=== PATIENT | male | born 1985 | race Caucasian/White ===

== ENCOUNTER → 2019-02-23 11:37 | Outpatient (CLI) | payer BC, SELFPAY ==
[2019-02-23 15:13] LABS: Anion Gap 8 (5-15); BUN 11 mg/dL (7-18); BUN/Creat Ratio 10.9 RATIO (10-20); Calcium,Total 9.4 mg/dL (8.5-10.1); Chloride 103 mmol/L (98-107); Cholesterol 131 mg/dL (200); Creatinine, Serum 1.01 mg/dL (0.70-1.30); EST Glomerular Filtration Rate 90 mL/min (>60); Est Glom Filt Rate - Afr Amer 109 mL/min (>60); Glucose 95 mg/dL (74-106); High Density Lipoprotein 85 mg/dL; Sodium Level 141 mmol/L (136-145); Thyroid Stim Hormone (TSH) 0.66 uIU/mL (0.358-3.74); Triglycerides 28 mg/dL; Very Low Density Lipoprotein 6 mg/dL (5-40)
== END ==
PROVIDERS: Family Provider Family Medicine; PCP Family Medicine; Referring Provider Family Medicine; Visit Provider Family Medicine
DX: Z00.00 Encounter for general adult medical examination without abnormal findings (principal); F41.9 Anxiety disorder, unspecified
CPT/HCPCS: 36415; 80048; 80061; 84443

== ENCOUNTER → 2019-08-17 15:31 | Outpatient (CLI) | payer BC, SELFPAY | PROVIDERS: Family Provider Family Medicine; PCP Family Medicine; Referring Provider Otolaryngology Otolaryngology/Facial Plastic Surgery; Visit Provider Otolaryngology Otolaryngology/Facial Plastic Surgery | DX: J02.9 Acute pharyngitis, unspecified (principal) | CPT/HCPCS: 87070 ==

== ENCOUNTER → 2021-03-03 09:29 | Outpatient (CLI) | payer OTHER, SELFPAY ==
[2021-03-03 13:01] LABS: Anion Gap 4 (5-15); BUN 13 mg/dL (7-18); BUN/Creat Ratio 12.3 RATIO (10-20); Calcium,Total 9.1 mg/dL (8.5-10.1); Chloride 105 mmol/L (98-107); Cholesterol 153 mg/dL (200); Creatinine, Serum 1.06 mg/dL (0.70-1.30); EST Glomerular Filtration Rate 85 mL/min (>60); Est Glom Filt Rate - Afr Amer 102 mL/min (>60); Glucose 113 mg/dL (74-106); High Density Lipoprotein 95 mg/dL; Potassium 4.2 mmol/L (3.5-5.1); Sodium Level 139 mmol/L (136-145); Triglycerides 28 mg/dL; Very Low Density Lipoprotein 6 mg/dL (5-40)
== END ==
PROVIDERS: PCP Family Medicine; Visit Provider Family Medicine
DX: I10 Essential (primary) hypertension (principal)
CPT/HCPCS: 36415; 80048; 80061

== ENCOUNTER → 2024-01-10 | Outpatient (CLI) | payer OTHER, SELFPAY ==
[2024-01-10 16:11] LABS: Anion Gap 7 (5-15); BUN 12 mg/dL (7-18); BUN/Creat Ratio 10.5 RATIO (10-20); Calcium,Total 9.4 mg/dL (8.5-10.1); Chloride 102 mmol/L (98-107); Cholesterol 117 mg/dL (200); Creatinine, Serum 1.14 mg/dL (0.70-1.30); EST Glomerular Filtration Rate 76 mL/min (>60); Est Glom Filt Rate - Afr Amer 93 mL/min (>60); Glucose 120 mg/dL (74-106); High Density Lipoprotein 63 mg/dL; Potassium 3.9 mmol/L (3.5-5.1); Sodium Level 137 mmol/L (136-145); Thyroid Stim Hormone (TSH) 0.78 uIU/mL (0.358-3.74); Triglycerides 56 mg/dL; Very Low Density Lipoprotein 11 mg/dL (5-40)
== END | disposition home or self-care (01) ==
LOC: MFPLAB 11:53
PROVIDERS: PCP Family Medicine; Visit Provider Family Medicine
DX: Z00.00 Encounter for general adult medical examination without abnormal findings (principal)
CPT/HCPCS: 36415; 80048; 80061; 84403; 84443

== ENCOUNTER 2024-02-03 16:08 | Emergency (ER) | payer OTHER, SELFPAY ==
[2024-02-03 16:12] VITALS: BP 142/88; PULSE 82; RESP 18; TEMP 36.2; O2SAT 98
--- NOTE | 2024-02-03 18:14 | EX.ED.UPPERE ---
HPI History of Present Illness HPI Narrative: Left index finger laceration with a box stamper. Believes his tetanus is up-to-date. Chief Complaint: Laceration Informant: patient Occured/Mechanism Mechanism/Context: Yes injury Onset/Context/Timing Onset: Today and Hours Context: Sudden Onset Timing: Continuous Quality of Pain: Sharp Current Severity: Mild Maximum Severity: Mild Associated Symptoms Associated Symptoms: Positive for Parasthesia; Negative for Weakness or Loss of Funtion Narrative Narrative: 38-year-old male [id number] was cutting ties with a box stamper when he accidentally lacerated his left distal index finger on the radial side. Believes his tetanus is up-to-date. Denies any other injuries. 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 Tetanus Immunization: 5-10 years Prior similar symptoms: No Recent Illness/Hospitalization: No PFSH PFSH Medical History no medical history no medical history Allergy/AdvReac Type Severity Reaction Status Date / Time Penicillins Allergy Unknown unknown Verified 02/03/24 16:11 Surgical History no surgical history no surgical history ROS ROS ED ROS Narrative Denies recent illness. Review of Systems ROS Unobtainable: Denies due to encephalopathy Constitutional Constitutional ED: Denies chills or fever(s) Eyes Eyes: Denies blurry vision ENT ENT ED: Denies ear pain, rhinorrhea or sore throat Cardiovascular Cardiovascular: Denies chest pain Respiratory/Chest Respiratory/Chest: Denies cough or dyspnea Gastrointestinal Gastrointestinal: Denies abdominal pain Genitourinary Genitourinary ED: Denies dysuria or hematuria Musculoskeletal Musculoskeletal: Denies back pain, myalgias or neck pain Integumentary Denies abscess, Abrasions or rash Neurologic Neurologic: Denies headache(s) Psychiatric Psychiatric: Denies anxiety, depression, suicidal ideation or suicidal thoughts Endocrine Endocrinology: Denies cold intolerance Hematologic/Lymphatic Hematologic/Lymphatic: Denies easy bleeding, easy bruising or lymphadenopathy Allergic/Immunologic Allergic/Immunologic ED: Denies mouth swelling, tongue swelling or urticaria EXAM Physical Exam Narrative Exam Narrative: 38 male vital signs stable afebrile. Exam unremarkable except left hand, left index finger distal en melanie side he has a diagonal laceration on the skin subcu tissue. There is venous bleeding. Distally on the radial side he has decreased sensation. There may be a digital nerve injury distally. No foreign body. No infection. He is able to flex and extend all joints of left index fingers. Lungs are clear. Heart regular rhythm. Chest wall nontender. He is awake alert. Answering questions following commands. Const Vital Signs: 02/03/24 16:12 Temperature 97.2 F L Temperature Source Temporal Pulse Rate 82 Respiratory Rate 18 Blood Pressure 142/88 H Blood Pressure Mean 106 Pulse Ox 98 Oxygen Delivery Method Room Air Positive well nourished and well developed; Negative for obese, cachectic, contractures or unkempt General Appearance ED: well developed and NAD; Negative for unkempt, cachectic, contractures, cyanotic or diaphoretic Nutritional Appearance: Negative for cachectic or obese HEENT Reports moist mucous membranes normocephalic and atraumatic; Negative for trauma or tenderness Eyes PERRL and EOMs intact bilaterally General Eye ED: Negative for other Neck full ROM and supple General: Negative for tenderness Lymph Lymphatic: Negative for other Chest Wall inspection of chest normal and palpation of chest normal Chest: Negative for other Resp normal respiratory effort and clear to auscultation bilaterally Effort and Inspection: Negative for pain with movement Auscultation: Negative for rales, rhonchi, wheezes or diminished lung sounds Cardio regular rate, regular rhythm, S1 normal heart sound, S2 normal heart sound and no murmurs Rate: Negative for bradycardia Rhythm: Negative for abnormal rhythm GI non-tender, non-distended and no masses Inspection: Negative for abdominal distention Auscultation: normoactive bowel sounds Palpation: soft; Negative for tender, guarding or rebound tenderness present Back/Spine no CVA tenderness General Back: Negative for CVA tenderness Cervical Spine: Negative for cervical spine tenderness Thoracic Spine / Upper Back: Negative for thoracic spinal tenderness Lumbar Spine / Lower Back: Negative for lumbar spinal tenderness Extremity normal to inspection and full ROM Extremity Narrative: Except left index finger palmar radial side diagonal laceration bone skin subcu tissue. Venous bleeding. Distal radial side tip decreased sensation. No foreign body infection. General Extremety ED: Negative for edema General Extremity: Negative for edema Neuro oriented x3, CN's II-XII intact bilaterally, moves all extremities, no focal motor deficits and No no sensory deficits noted Sensorium / Orientation: alert, oriented to person, oriented to place and oriented to time; Negative for orientation impaired, lethargic or stuporous Motor Exam: strength 5/5 throughout Psych mental status grossly normal Appearance: Negative for unkempt Attitude: No agitated Mood & Affect: Negative for depressed, anxious or tearful Skin General Skin Exam: Negative for petechiae Lesions: no lesions Rashes: no rashes Trauma: laceration linear MDM MDM MDM Narrative Medical decision making narrative: 38-year-old [id number] left distal index finger laceration will need repaired. Tetanus is up-to-date. Digital block and this will be explored washed out irrigated and repaired. There may be a digital nerve injury due to decreased sensation distally. Suture repair left index finger. Good hemostasis and wound closure. Patient instructed on wound care and suture removal in 10 to 14 days. Nurse will clean and dress it will be discharged home. He is comfortable with the plan. History & Record Review Discussion w/independent historian: Patient Additional record(s) reviewed:: Prior inpatient record, Prior outpatient record, Prior ED visit and Prior labs Procedures Lacerations Left index finger laceration repair:: Length: 3 in Depth: Sub Q Shape: Linear Prep: Shure-Clens Laceration repair: Digital block, Irrigated, Lidocaine, Nerve block and Skin sutures Number of Sutures/[place]: 7 Suture Information: Ethilon, Simple and 4-0 Comment: Left distal index finger laceration radial side. Involve the skin subcu tissue. Distally decreased sensation concern for possible digital nerve injury. Patient understands that. Digital block was performed. Once proper site was obtained. The wound was cleaned with Shur-Clens. Copiously irrigated with saline and explored. Closed using 7 simple erupted 4-0 Ethilon sutures. Proper hemostasis wound closure was obtained. Patient instructed on wound care and suture removal in 10 to 14 days. Discharge Plan Triage Chief Complaint: Laceration ED Provider: Enrique Lundberg Dx/Rx/DC Orders Clinical Impression: Finger laceration Instructions: ED Laceration, Hand: All Closures Primary Care Provider: Fletcher Corona Referrals: Fletcher Corona MD [Primary Care Provider] - 10-14 Days suture removal Activity Restrictions/Additional Instructions: If our dressing stays dry and clean you can leave it on for 2 to 3 days. Then start cleaning it daily with soap and water or peroxide and water. Dry thoroughly. Do not soak your finger in any liquids. Apply antibiotic ointment. Patient change dressing daily. Tylenol and Motrin for pain. Ice and elevate. To decrease pain and swelling. Watch for any signs of infection such as redness, streaks, pus or swelling or fever if seen return. Stitches out in 10 to no more than 14 days. Disposition Disposition: Home, Self Care
[2024-02-03 19:23] VITALS: BMI 22.1
== END 2024-02-03 19:37 | disposition home or self-care (01) ==
PROVIDERS: Emergency Provider Emergency Medicine; PCP Family Medicine; Visit Provider Emergency Medicine
DX: S61.211A Laceration without foreign body of left index finger without damage to nail, initial encounter (principal); W26.9XXA Contact with unspecified sharp object(s), initial encounter
CPT/HCPCS: 12002; 99284

== ENCOUNTER 2025-02-21 18:03 | Inpatient (IN) | payer OTHER, SELFPAY ==
[2025-02-21 18:04] VITALS: BP 147/105; PULSE 88; RESP 16; TEMP 36.8; O2SAT 98; BMI 24.8
--- NOTE | 2025-02-21 18:45 | EX.ED.DYSGE1 ---
HPI History of Present Illness Chief Complaint: Substance Abuse [facility] Medical History (Updated 02/21/25 @ 21:46 by Era Roberson) Anxiety Home Medications ?Medication ?Instructions ?Recorded ?Last Taken ?Type alprazolam 1 mg tablet (Xanax) 1 mg PO .COMPLEX 02/21/25 Unknown History ketotifen fumarate 0.025 % (0.035 1 drp EACH EYE BID PRN allergy 02/21/25 Unknown History %) eye drops (Alaway) symptoms Allergy/AdvReac Type Severity Reaction Status Date / Time Penicillins Allergy Unknown unknown Verified 02/21/25 19:11 Social History Smoking Status: Former smoker EXAM Physical Exam Const Vital Signs: 02/21/25 18:04 02/21/25 20:04 Temperature 98.2 F 98 F Temperature Source Oral Pulse Rate 88 75 Respiratory Rate 16 16 Blood Pressure 147/105 H 139/84 H Blood Pressure Mean 119 102 Pulse Ox 98 100 Oxygen Delivery Method Room Air MDM MDM MDM Narrative Medical decision making narrative: HISTORY OF PRESENT ILLNESS: Chief complaint: Alcohol detox 40-year-old male history of alcohol abuse presents with concern for alcohol detox. States he wants detox. States has been drinking approximate 12 pack a day. Last drink was just prior to arrival. REVIEW OF SYSTEMS: Pertinent positives: None Pertinent negatives: Headache, abdominal pain, vomiting PHYSICAL EXAM: Nursing triage notes reviewed, Vital signs reviewed Constitutional: please see mdm HENT: MMM Eyes: Pupils equal round and reactive to light, Extraocular muscles intact Neck: No stridor, no JVD, full neck ROM Lungs: Clear to auscultation, No wheezing or rales. No increased work of breathing, no conversational dyspnea, no accessory muscle use, no nasal flaring. No respiratory distress noted Heart: Regular rate and rhythm, No murmurs, No rubs and No gallops, 2+ distal pulses (radial, femoral, posterior tibial) in all extremities Abdomen: Soft, there is no tenderness, rigidity, rebound or guarding, no obvious peritoneal signs, no palpable pulsatile abdominal masses, no auscultated abdominal bruit : No CVAT Extremities: No edema Neuro: No new focal neurological deficits, cranial nerves II through XII intact, 5/5 strength in all present extremities. Intact sensation to light touch in all present extremities, 2+ reflexes bilateral patella tendons. Skin: No rash or lesions noted MEDICAL DECISION MAKING: Chief Complaint: please see HPI External records reviewed: Reviewed prior ED evaluation Factors affecting care: none Social determinants of health: history of alcohol abuse History obtained from others: Consults: Internal medicine (Dr. Adams) [facility] Narrative: The patient was initially hemodynamically stable, afebrile and nontoxic-appearing. Exam unremarkable Medical clearance labs obtained. Medical clearance labs are reassuring. Alcohol is most elevated consistent patient's history of alcohol abuse The patient was admitted to [facility] for ramp program The patient and/or family, caregivers express understanding. The patient and/or family, caregivers agrees with the plan. Shared decision making: I will have a discussion with the patient and or visitors regarding risk/benefits of further testing or admission. They will be made aware of of the risk/benefits inherent in this decision they will be given the opportunity to voice understanding. Total critical care time today provided was at least 0 [] minutes. This excludes separately billable procedures. Critical care time (if documented) is secondary to the patient having high probability of clinically significant/life threatening deterioration in the patient's condition which required my urgent intervention. Impression: 1. History of alcohol abuse 2. Encounter for alcohol detoxification Dispo: Discharge home This note was generated with Technical Machine dictation software. It may contain incorrect words, spelling, and punctuation that were not noted in review of the chart prior to signing. Lab Data Labs: Laboratory Results - last 24 hr 02/21/25 02/21/25 18:25 19:30 WBC 11.0 RBC 4.83 Hgb 15.8 Hct 44.9 MCV 93.0 MCH 32.7 H MCHC 35.2 RDW Std Deviation 37.5 RDW Coeff of Haider 11.0 L Plt Count 267 MPV 9.4 Immature Gran % (Auto) 0.200 Neut % (Auto) 56.1 Lymph % (Auto) 21.6 [place] % (Auto) 11.1 H Eos % (Auto) 9.0 H Baso % (Auto) 2.0 H Absolute Neuts (auto) 6.2 Absolute Lymphs (auto) 2.38 Nucleated RBC % 0 Sodium 136 Potassium 3.2 L Chloride 92 L Carbon Dioxide 28.7 Anion Gap 16 H BUN 5 Creatinine 0.75 Estim Creat Clear Calc 132.24 Est GFR (MDRD) Non-Af 118 BUN/Creatinine Ratio 6.1 L Glucose 123 H Calcium 9.0 Urine Opiates Screen NEGATIVE U Buprenorphine Qual NEGATIVE Ur Oxycodone Screen NEGATIVE Urine Methadone Screen NEGATIVE Urine Fentanyl Screen NEGATIVE Ur Barbiturates Screen NEGATIVE Ur Phencyclidine Scrn NEGATIVE Ur Amphetamines Screen NEGATIVE U Benzodiazepines Scrn NEGATIVE Urine Cocaine Screen NEGATIVE U Cannabinoids Screen NEGATIVE Ethyl Alcohol 366.0 H* Discharge Plan Disposition Disposition: Acute Care Hospital [facility] Discharge Date/Time: 02/21/25 21:16
[2025-02-21 19:27] LABS: Absolute Lymphocyte Count 2.38 X10^3/uL (0.83-4.51); Absolute Neutrophil Count 6.2 X10^3/uL (2.0-7.7); Basophil# 0.22 X10^3/uL; Eosinophil# 0.99 X10^3/uL; Hematocrit 44.9 % (40-54); Hemoglobin 15.8 g/dL (13.0-16.5); Lymphocyte # 2.38 X10^3/ul (0.83-4.51); Lymphocyte % 21.6 % (19-41); Mean Corp Hgb Conc 35.2 g/dL (32-36); Mean Corpuscular Hgb 32.7 pg (27.0-32.0); Mean Platelet Vol. 9.4 fl (6.2-12.0); Monocyte# 1.22 X10^3/uL; Monocyte% 11.1 % (0-10); NRBC Flagged by Analyzer 0 % (0-5); Neutrophil % 56.1 % (47-70); Platelet Count 267 K/mm3 (150-450); RBC Distribution Width SD 37.5 fl (35.1-43.9); Red Blood Count 4.83 M/mm3 (4.6-6.2)
[2025-02-21 19:46] LABS: Anion Gap 16 (5-15); BUN 5 mg/dL (4-19); BUN/Creat Ratio 6.1 RATIO (10-20); Carbon Dioxide 28.7 mmol/L (21.0-32.0); Chloride 92 mmol/L (98-108); Creatinine, Serum 0.75 mg/dL (0.70-1.20); EST Glomerular Filtration Rate 118 (>60); Estimated Creatinine Clearance 132.24 ml/min (50-250); Glucose 123 mg/dL (70-99); Potassium 3.2 mmol/L (3.3-5.1); Sodium Level 136 mmol/L (133-145)
--- NOTE | 2025-02-21 19:56 | CM.ED ---
Social Work SW met with patient, patients and patients mother. Patients was uncertain if patient needed detox or a mental health assessment. Due to patients alcohol level and length of time he has been drinking heavily, physician stated that the safest way for patient to be medically cleared for a mental health assessment would be to participated in RAMP. Patient and stated understanding of same and are agreeable for RAMP program. Patient to be assessed for mental health if needed once sober. Salina Reid, TITLE MANAGER, AMBULATORY TECHNOLOGIST
[2025-02-21 19:59] LABS: Amphetamine Urine NEGATIVE (<1000 ng/mL); Barbiturate Urine NEGATIVE (< 200 ng/mL); Benzodiazepine Urine NEGATIVE (< 200 ng/mL); Buprenorphine Urine NEGATIVE (< 200 ng/mL); Cocaine Urine NEGATIVE (< 300 ng/mL); Fentanyl, Urine NEGATIVE; Methadone Urine NEGATIVE (< 300 ng/mL); Opiates Urine NEGATIVE (< 300 ng/mL); Oxycodone, Urine NEGATIVE (< 100 ng/mL); PCP Urine NEGATIVE (< 25 ng/mL); THC Urine NEGATIVE (< 50 ng/mL)
[2025-02-21 20:04] VITALS: BP 139/84; PULSE 75; RESP 16; TEMP 36.6; O2SAT 100
--- NOTE | 2025-02-21 21:07 | PCM.HP.STD ---
HPI - General General Date of Admission: 02/21/25 Date of Service: 02/21/25 Chief Complaint: Alcohol detoxification HPI Narrative RADU CABRERA, is a 40 M with past medical history of anxiety who presents to [facility] ED for concerns regarding ongoing alcohol abuse and interested in detoxification. He is accompanied by his and mother at bedside, endorses drinking 8 beers daily and is interested in detoxification. His last drink was today around 3 PM. He also chews nicotine pouches and takes Xanax 1 mg daily that he had procured from [facility]. No other IV drugs, no marijuana use, no cigarette smoking. No admissions for detoxification in the past. Not on any medications at home. Lives with and 2 kids At the time of presentation in the ED, blood pressure 139/84, pulse 75, oxygen saturation 100, WBC 11.0 hemoglobin 15.8 platelet count 267 sodium 136, potassium 3.2, BUN 5, creatinine 0.7, Ethyl alcohol 366.0 mg/DL [facility] Home Medications ?Medication ?Instructions ?Recorded ?Last Taken ?Type alprazolam 1 mg tablet (Xanax) 1 mg PO .COMPLEX 02/21/25 Unknown History ketotifen fumarate 0.025 % (0.035 1 drp EACH EYE BID PRN allergy 02/21/25 Unknown History %) eye drops (Alaway) symptoms Allergy/AdvReac Type Severity Reaction Status Date / Time Penicillins Allergy Unknown unknown Verified 02/21/25 19:11 Social History Smoking Status: Former smoker ROS Review of Systems ROS Unobtainable: Denies due to encephalopathy, due to endotracheal tube, due to mental condition, due to mental status or other Constitutional Constitutional: Denies anorexia, change in weight, chills, fatigue, fever(s), malaise, night sweats, weakness or other Eyes Eyes: Denies blurry vision, change in eye color, change in vision, discharge from eye(s), double vision, erythema, eye pain, loss of vision or other ENT HEENT: Denies abnormal hearing, dysphagia, ear pain, epistaxis, headache(s), hearing loss, nasal congestion, nasal discharge, post nasal drip, sinus pressure, sore throat or other Cardiovascular Cardiovascular: Denies chest pain, claudication, dyspnea on exertion, edema, lightheadedness, orthopnea, palpitations, paroxysmal nocturnal dyspnea, rapid heart rate, syncope or other Respiratory/Chest Respiratory/Chest: Denies cough, dyspnea, excessive phlegm production, hemoptysis, productive cough, shortness of breath at rest, shortness of breath with exertion, wheezing or other Gastrointestinal Gastrointestinal: Denies abdominal pain, coffee ground emesis, constipation, diarrhea, dyspepsia, hematemesis, hematochezia, loose stools, melena, nausea, vomiting or other Genitourinary Genitourinary: Denies burning urination, difficulty urinating, dysuria, hematuria, nocturia, urinary frequency, urinary hesitancy, urinary incontinence, urinary urgency or other Musculoskeletal Musculoskeletal: Denies arthralgias, back pain, joint pain, joint stiffness, joint swelling, myalgias, neck pain or other Neurologic Neurologic: Denies abnormal gait, abnormal speech, confusion, disequilibrium, dizziness, focal weakness, headache(s), numbness, paresthesias, seizure-like activity, seizures, syncope, tingling, tremor(s) or other Psychiatric Psychiatric: Denies anxiety, depression, homicidal ideation, suicidal ideation or other Endocrine Endocrinology: Denies change in body appearance, cold intolerance, excessive sweating, heat intolerance, polydipsia, polyuria or other Hematologic/Lymphatic Hematologic/Lymphatic: Denies anemia, easy bleeding, easy bruising, lymphadenopathy or other Allergic/Immunologic Allergic/Immunologic: Denies rhinitis, hives, eczemia, asthma or other Vital Signs Vital Signs Vital Signs: 02/21/25 18:04 02/21/25 20:04 Temperature 98.2 F 98 F Temperature Source Oral Pulse Rate 88 75 Respiratory Rate 16 16 Blood Pressure 147/105 H 139/84 H Blood Pressure Mean 119 102 Pulse Ox 98 100 Oxygen Delivery Method Room Air Weight Weight: 168 lb 6.4 oz Body Mass Index (BMI) 24.8 Physical Exam Const alert, oriented x3, no apparent distress and average body habitus HEENT normocephalic and head/scalp atraumatic Eyes PERRL and EOMs intact bilaterally Neck no lymphadenopathy and supple Resp normal respiratory effort and no retractions Cardio regular rate, regular rhythm and S1 normal heart sound GI normal to inspection, nondistended, normoactive bowel sounds Extremity normal to inspection Neuro oriented x3 and CN's II-XII intact bilaterally Sensorium / Orientation: awake, alert and oriented to person Results Medical Records Data Attestation: I reviewed the patient's medical records Lab / Micro Data 02/21/25 18:25 02/21/25 18:25 Labs: Laboratory Results - last 24 hr 02/21/25 18:25: WBC 11.0, RBC 4.83, Hgb 15.8, Hct 44.9, MCV 93.0, MCH 32.7 H, MCHC 35.2, RDW Std Deviation 37.5, RDW Coeff of [place]ider 11.0 L, Plt Count 267, MPV 9.4, Immature Gran % (Auto) 0.200, Neut % (Auto) 56.1, Lymph % (Auto) 21.6, [place] % (Auto) 11.1 H, Eos % (Auto) 9.0 H, Baso % (Auto) 2.0 H, Absolute Neuts (auto) 6.2, Absolute Lymphs (auto) 2.38, Nucleated RBC % 0, Sodium 136, Potassium 3.2 L, Chloride 92 L, Carbon Dioxide 28.7, Anion Gap 16 H, BUN 5, Creatinine 0.75, Estim Creat Clear Calc 132.24, Est GFR (MDRD) Non-Af 118, BUN/Creatinine Ratio 6.1 L, Glucose 123 H, Calcium 9.0, Ethyl Alcohol 366.0 H* 02/21/25 19:30: Urine Opiates Screen NEGATIVE, U Buprenorphine Qual NEGATIVE, Ur Oxycodone Screen NEGATIVE, Urine Methadone Screen NEGATIVE, Urine Fentanyl Screen NEGATIVE, Ur Barbiturates Screen NEGATIVE, Ur Phencyclidine Scrn NEGATIVE, Ur Amphetamines Screen NEGATIVE, U Benzodiazepines Scrn NEGATIVE, Urine Cocaine Screen NEGATIVE, U Cannabinoids Screen NEGATIVE Assessment & Plan Assessment/Plan (1) Admitted to alcohol detoxification center: PLAN: Plan 30-year-old male with past medical history of anxiety is being admitted for concerns regarding alcohol abuse and interested in detoxification, his last drink was today at 3 PM and is asymptomatic at this time. We will monitor him for any features of early withdrawal and start him on the CIWA protocol.. #Alcohol detoxification - Admit to inpatient medical floor - Started on the CIWA protocol - Close monitoring of vitals prior to the CIWA protocol - Thiamine 100 mg IV daily into 3 days, folic acid 1 mg p.o. daily - As needed antiemetics and antidiarrheals ordered - Liver function tests tomorrow # Nicotine dependence - Nicotine patches # Anxiety - This is in the setting of ongoing alcohol and benzo abuse - Monitor for any worsening -Will consider SSRI initiation at the time of discharge if persistent symptoms are present #DVT prophylaxis - low risk for DVT - Encourage mobilization
[2025-02-21 21:45] VITALS: RESP 15; O2SAT 94
[2025-02-21 21:47] VITALS: BMI 23.3
[2025-02-21 21:51] VITALS: BP 147/86; PULSE 102; RESP 17; TEMP 37.2; O2SAT 94
[2025-02-21] MEDS: Gabapentin 300 MG Capsule PO (21:55)
[2025-02-21] MEDS: traZODone 100 MG Tablet PO (21:55)
[2025-02-21] MEDS: Phenobarbital 32.4 MG Tablet 64.8 MG PO (21:56)
[2025-02-21 22:18] VITALS: BP 147/86; PULSE 102; RESP 16; TEMP 37.2; O2SAT 94
[2025-02-21 22:20] VITALS: O2SAT 94
[2025-02-21] MEDS: hydrOXYzine PAM 25 MG Capsule 50 MG PO (22:28)
[2025-02-22] VITALS (10 sets, daily range): BP systolic 119–159; BP diastolic 81–98; PULSE 63–115; RESP 15–18; TEMP 36.6–37.1; O2SAT 92–99
[2025-02-22] MEDS: Phenobarbital 32.4 MG Tablet 64.8 MG PO ×6 (02:27→21:03)
[2025-02-22 05:57] LABS: Absolute Lymphocyte Count 2.01 X10^3/uL (0.83-4.51); Absolute Neutrophil Count 3.7 X10^3/uL (2.0-7.7); Basophil# 0.17 X10^3/uL; Basophil% 2.3 % (0-1); Eosinophil# 0.66 X10^3/uL; Hematocrit 41.6 % (40-54); Hemoglobin 14.6 g/dL (13.0-16.5); Lymphocyte # 2.01 X10^3/ul (0.83-4.51); Lymphocyte % 27.4 % (19-41); Mean Corp Hgb Conc 35.1 g/dL (32-36); Mean Corpuscular Volume 94.1 fL (80-94); Mean Platelet Vol. 9.2 fl (6.2-12.0); Monocyte# 0.78 X10^3/uL; Monocyte% 10.6 % (0-10); NRBC Flagged by Analyzer 0 % (0-5); Neutrophil # 3.69 X10^3/uL (2.7-7.7); Neutrophil % 50.4 % (47-70); Platelet Count 240 K/mm3 (150-450); RBC Distribution Width CV 10.8 % (11.6-14.6); RBC Distribution Width SD 37.5 fl (35.1-43.9); Red Blood Count 4.42 M/mm3 (4.6-6.2); White Blood Count 7.3 K/mm3 (4.4-11.0)
[2025-02-22 06:02] LABS: International Normalized Ratio 0.9; Prothrombin Time (Protime)PT. 12.7 SECONDS (11.7-14.9)
[2025-02-22 06:44] LABS: ALB/GLOB Ratio 1.5 RATIO (0.9-2.4); AST(SGOT) 153 U/L (<=37); Alanine Aminotransfer ALT/SGPT 152 U/L (<=46); Albumin, Serum 4.4 g/dL (3.5-5.0); Alkaline Phosphatase 73 U/L (40-129); Anion Gap 16 (5-15); BUN 5 mg/dL (4-19); BUN/Creat Ratio 5.7 RATIO (10-20); Bilirubin, Direct 0.51 mg/dL (0.00-0.30); Calcium,Total 9.1 mg/dL (7.6-11.0); Carbon Dioxide 25.8 mmol/L (21.0-32.0); Chloride 98 mmol/L (98-108); Creatinine, Serum 0.83 mg/dL (0.70-1.20); EST Glomerular Filtration Rate 114 (>60); Glucose 91 mg/dL (70-99); Magnesium 2.3 mg/dL (1.5-2.2); Potassium 3.7 mmol/L (3.3-5.1); Protein, Total 7.4 g/dL (5.9-8.4); Sodium Level 140 mmol/L (133-145); Thyroid Stim Hormone (TSH) 0.521 uIU/mL (0.300-4.200); Total Bilirubin 1.23 mg/dL (0.00-1.30)
[2025-02-22] MEDS: Gabapentin 300 MG Capsule PO (06:57)
[2025-02-22] MEDS: hydrOXYzine PAM 25 MG Capsule 50 MG PO ×3 (09:27→21:50)
[2025-02-22] MEDS: Dicyclomine 10 MG Capsule 20 MG PO ×2 (09:27→21:04)
[2025-02-22] MEDS: Folic Acid 1 MG Tablet PO (09:28)
[2025-02-22] MEDS: Thiamine Hydrochloride 100 MG Tablet PO (09:28)
--- NOTE | 2025-02-22 10:47 | ADDICTION ---
Met with pt to complete RAMP assessments. Pt was agreeable to tx recommendations. He was assessed for the Vivitrol shot post discharge and meets criteria. Pt will follow up with Kirsten for counseling and his PCP for follow up with MAT.
--- NOTE | 2025-02-22 15:09 | CHAPLAIN ---
Type of Pastoral Visit _x__ Initial Visit ___ Follow-up Visit ___ On-call Visit ___ General Patient Visit ___ Spiritual Assessment ___ Family Conference ___ Bereavement ___ Rapid Response ___ Code Blue ___ Other (describe below) Pastoral Care Referral From _x__ Patient ___ Family ___ Nurse ___ Physician ___ Salt Manager ___ Pasting Inspector ___ Other (describe below) Sacrament/Intervention _x__ Active listening ___ Anointing ___ Buddhist ___ Bereavement ___ Communion _x__ Christina exploration ___ _x__ Life review _x__ Prayer ___ Reconciliation ___ Sacrament of Sick _x__ Supportive presence ___ Wedding ___ Other (describe below) Pastoral Comments door to patient's room was open and patient was awake on his bed; pt is offered support and pt agrees for the visit; pt admits that he is feeling bad and is somewhat foggy in the head; pt describes his life of work and family; pt admits that alcohol has taken control of life to where it is not casual but daily and a big problem; pt is tearful as he mentions that he has difficulty being away from his two young children; pt is willing to speak of his habits and feelings of regret and shame; listened and offered support through the feelings expressed, how to get help, and being able to acknowledge to others and God his need; pt listens and expresses the appreciation for time given to him and for bringing presence and prayers for his recovery
[2025-02-22] MEDS: Ensure Plus High Protein 120 ML LIQUID PO (17:11)
--- NOTE | 2025-02-22 18:00 | PCM.PN.HOSP ---
Subjective Subjective Patient was seen and examined today, he was admitted yesterday for alcohol detox, I talked briefly with addiction psychiatric social worker supervisor today. They feel he would be a good candidate for Vivitrol. Objective Data Objective Data Vital Signs: Vital Signs Temp Pulse Resp BP Pulse Ox O2 Del Method 98.7 F 85 16 159/87 H 97 Room Air 02/22/25 14:10 02/22/25 14:10 02/22/25 14:10 02/22/25 14:10 02/22/25 14:10 02/22/25 14:10 Oxygen Delivery Method Room Air Weight: 69.7 kg Body Mass Index (BMI) 23.3 Intake & Output: Intake and Output for Last 24 Hours 02/20/25 02/21/25 02/22/25 23:59 23:59 23:59 Intake Total 250 / 250 Balance 250 / 250 Lab / Micro Data 02/22/25 05:34 02/22/25 05:34 Labs: Laboratory Results - last 24 hr 02/21/25 18:25: WBC 11.0, RBC 4.83, Hgb 15.8, Hct 44.9, MCV 93.0, MCH 32.7 H, MCHC 35.2, RDW Std Deviation 37.5, RDW Coeff of Ha[place] 11.0 L, Plt Count 267, MPV 9.4, Immature Gran % (Auto) 0.200, Neut % (Auto) 56.1, Lymph % (Auto) 21.6, [place] % (Auto) 11.1 H, Eos % (Auto) 9.0 H, Baso % (Auto) 2.0 H, Absolute Neuts (auto) 6.2, Absolute Lymphs (auto) 2.38, Nucleated RBC % 0, Sodium 136, Potassium 3.2 L, Chloride 92 L, Carbon Dioxide 28.7, Anion Gap 16 H, BUN 5, Creatinine 0.75, Estim Creat Clear Calc 132.24, Est GFR (MDRD) Non-Af 118, BUN/Creatinine Ratio 6.1 L, Glucose 123 H, Calcium 9.0, Ethyl Alcohol 366.0 H* 02/21/25 19:30: Urine Opiates Screen NEGATIVE, U Buprenorphine Qual NEGATIVE, Ur Oxycodone Screen NEGATIVE, Urine Methadone Screen NEGATIVE, Urine Fentanyl Screen NEGATIVE, Ur Barbiturates Screen NEGATIVE, Ur Phencyclidine Scrn NEGATIVE, Ur Amphetamines Screen NEGATIVE, U Benzodiazepines Scrn NEGATIVE, Urine Cocaine Screen NEGATIVE, U Cannabinoids Screen NEGATIVE 02/22/25 05:34: WBC 7.3, RBC 4.42 L, Hgb 14.6, Hct 41.6, MCV 94.1 H, MCH 33.0 H, MCHC 35.1, RDW Std Deviation 37.5, RDW Coeff of Haider 10.8 L, Plt Count 240, MPV 9.2, Immature Gran % (Auto) 0.300, Neut % (Auto) 50.4, Lymph % (Auto) 27.4, [place] % (Auto) 10.6 H, Eos % (Auto) 9.0 H, Baso % (Auto) 2.3 H, Absolute Neuts (auto) 3.7, Absolute Lymphs (auto) 2.01, Nucleated RBC % 0, PT 12.7, INR 0.9, Sodium 140, Potassium 3.7, Chloride 98, Carbon Dioxide 25.8, Anion Gap 16 H, BUN 5, Creatinine 0.83, Estim Creat Clear Calc 115.60, Est GFR (MDRD) Non-Af 114, BUN/Creatinine Ratio 5.7 L, Glucose 91, Calcium 9.1, Phosphorus 4.0, Magnesium 2.3 H, Total Bilirubin 1.23, Direct Bilirubin 0.51 H, AST 153 H, ALT 152 H, Alkaline Phosphatase 73, Total Protein 7.4, Albumin 4.4, Globulin 3.0, Albumin/Globulin Ratio 1.5, TSH 0.521 Physical Exam Const alert, oriented x3, no apparent distress, average body habitus and healthy appearing General Appearance: cooperative, well kempt and well developed Orientation / Consciousness: awake, oriented to person, oriented to place and oriented to time HEENT normocephalic, head/scalp atraumatic and moist oral mucous membranes Eyes PERRL, EOMs intact bilaterally and conjunctivae normal Neck supple, no JVD, thyroid normal and no carotid bruits General: trachea midline Resp normal respiratory effort, no retractions, no use of accessory muscles and clear to auscultation bilaterally Auscultation: Negative for rales, rhonchi or wheezes Cardio regular rate, regular rhythm, S1 normal heart sound, S2 normal heart sound, no murmurs, no rub and no gallops GI normal to inspection, nondistended, normoactive bowel sounds, soft to palpation, non-tender and non-distended Extremity no clubbing, cyanosis or edema Skin no rashes or lesions noted General Skin Exam: no breakdown Neuro oriented x3, CN's II-XII intact bilaterally, moves all extremities, no focal motor deficits and no sensory deficits noted Sensorium / Orientation: awake and alert Speech: speech normal Psych affect normal Assessment & Plan Assessment/Plan (1) Admitted to alcohol detoxification center: PLAN: Plan 1. Alcohol substance use disorder-patient will remain on his current medications, he will be seen by addiction psychiatric social worker supervisor ongoing #2 chronic anxiety-addiction psychiatric social worker supervisor recommended not starting the patient on any antidepressants while the patient is going through the [facility] program Total clinical time spent by myself addressing the patient's medical issues, reviewing all of his data, and collaborating patient's care team: 25 minutes Charges/Coding Visit Charges Inpatient E&M: 74551 Subs Hosp L1
[2025-02-22] MEDS: traZODone 100 MG Tablet PO (21:50)
[2025-02-23] MEDS: Phenobarbital 32.4 MG Tablet 64.8 MG PO ×4 (01:43→13:52)
[2025-02-23 05:01] VITALS: BP 148/102; BP 150/98; PULSE 63; PULSE 72; RESP 15; TEMP 36.7; TEMP 37.1; O2SAT 100; O2SAT 99
[2025-02-23 08:45] VITALS: BP 136/88; PULSE 93; RESP 16; TEMP 36.8; O2SAT 97
[2025-02-23] MEDS: Folic Acid 1 MG Tablet PO (09:33)
[2025-02-23] MEDS: Thiamine Hydrochloride 100 MG Tablet PO (09:33)
[2025-02-23] MEDS: Ensure Plus High Protein 120 ML LIQUID PO (09:34)
[2025-02-23 13:05] VITALS: O2SAT 96
--- NOTE | 2025-02-23 14:32 | DCINST_ITS ---
Discharge Instructions Diet Discharge Diet: No restrictions DC O2, CPAP, BIPAP needs Home O2 Discharge instructions: No Dressing / Incision Discharge Activity: Return to Normal Activity Weight Bearing Status: Full weight bearing Follow Up Care Test Results: Test results from this visit will be discussed in further detail at your follow- up appointment, if applicable. Discharge Plan Admission Admit Date/Time: 02/21/25 21:01 Primary Reason for Your Visit: Alcohol use disorder Attending Provider: Bryant Duke Primary Care Provider: Fletcher Corona Consulting Providers: Alisha Adams Instructions Additional Instructions / Restrictions: Follow-up with your counselor to continue Vivitrol injections and receive further detox treatment Discharge Orders/Prescriptions Prescriptions: Continued alprazolam [Xanax] 1 mg tablet 1 mg PO .COMPLEX Patient Comments: NOT PRESCRIBED Rx Instructions: 1 mg orally TAKES DESIRED; ketotifen fumarate [Alaway] 0.025 % (0.035 %) drops 1 drp EACH EYE BID PRN (Reason: allergy symptoms) Referrals / Follow Up: Fletcher Corona MD [Primary Care Provider] - Disposition Disposition (needs filled in before D/C Order can be placed): Home, Self Care
--- NOTE | 2025-02-23 14:33 | DS.PCM_ITS ---
Providers Date of Admission: 02/21/25 Date of Discharge: 02/23/25 Primary Care Physician: Dr. Fletcher Corona MD Reason For Visit: ALCOHOL WITHDRAWAL Diagnosis Discharge Diagnosis (1) Admitted to alcohol detoxification center: Status: Acute Plan 1. Alcohol substance use disorder-patient will remain on his current medications, he will be seen by addiction criminal justice social worker ongoing #2 chronic anxiety-addiction criminal justice social worker recommended not starting the patient on any antidepressants while the patient is going through the [facility] program #3 alcohol intoxication present on admission Total clinical time spent by myself addressing the patient's medical issues, reviewing all of his data, and collaborating patient's care team: 25 minutes Medications at Discharge Home Medications alprazolam 1 mg tablet (Xanax) 1 mg PO .COMPLEX 02/21/25 ketotifen fumarate 0.025 % (0.035 %) eye drops (Alaway) 1 drp EACH EYE BID PRN allergy symptoms 02/21/25 Hospital Course Operations None Procedures None Summary of Care Provided Minutes Spent on Discharge: 31 Hospital Course: This 40-year-old white male was seen in the emergency room at [facility] requesting services for alcohol detox. Labs obtained in the ER were remarkable for potassium of 3.2, indirect bilirubin 1.51, magnesium of 2.3, AST of 153 and ALT of 152. Patient's ethyl alcohol level was 366, tox cream was unremarkable. Patient was admitted to [place] [id number], orders were entered using the alcohol detox order set, patient was seen in consultation by addiction criminal justice social worker and was felt to be a good candidate for Vivitrol injection at the time of discharge. Patient had no evidence of DTs during his hospitalization, on 02/23/2025, patient was seen and examined: On examination he appeared in good health and spirits. Vital signs as documented. Skin warm and dry and without overt rashes. Neck without JVD, neck was supple, trachea midline, thyroid was normal. Lungs clear bilaterally, normal air movement was noted. Heart exam notable for regular rhythm, normal sounds and absence of murmurs, rubs or gallops. Abdomen unremarkable and without evidence of organomegaly, masses, or abdominal aortic enlargement. Bowel sounds are present, abdomen is not distended. Extremities nonedematous, no cyanosis was noted, no clubbing was noted. Neuro: Cranial nerves II through XII are grossly intact, no focal motor deficits were noted, sensation to light touch and pinprick intact, motor exam 5/5 throughout. Psych: Patient is alert and oriented x3, he does not appear anxious or depressed, he does not appear agitated. Patient appears stable for discharge home on 02/23/2025, he was given a Vivitrol injection on discharge Weight / BMI Weight Weight: 69.7 kg Body Mass Index (BMI) 23.3 ABG / Lab / Microbiology Data 02/22/25 05:34 02/22/25 05:34 D/C Instructions Discharge Diet: No restrictions Weight Bearing Status: Full weight bearing DC O2, CPAP, BIPAP Needs Home O2 Discharge instructions: No Meaningful Use Info Meaningful Use Meaningful Use Diagnoses (Choose all that apply): None applicable Ischemic Stroke Statin Dosing Therapy Reference: STATIN DOSE THERAPY REFERENCE: * Patients > 75 years receive moderate or high dose statin therapy. * Patients 75 years or YOUNGER should receive HIGH intensity statin dose unless contraindicated. You will be required to document reason for non-treatment if statin daily dose does not meet guidelines. HIGH DOSE STATIN THERAPY DAILY Atorvastatin > than or = to 40 mg Rosuvastatin > than or = to 20 mg Amlodipine + Atorvastatin > than or = to 2.5/40 mg Ezetimibe + Simvastatin 10/80 mg Simvastatin 80mg Discharge Plan Admission Admit Date/Time: 02/21/25 21:01 Primary Reason for Your Visit: Alcohol use disorder Attending Provider: Bryant Duke Primary Care Provider: Fletcher Corona Consulting Providers: Alisha Adams Instructions Additional Instructions / Restrictions: Follow-up with your counselor to continue Vivitrol injections and receive further detox treatment Discharge Orders/Prescriptions Prescriptions: Continued alprazolam [Xanax] 1 mg tablet 1 mg PO .COMPLEX Patient Comments: NOT PRESCRIBED Rx Instructions: 1 mg orally TAKES DESIRED; ketotifen fumarate [Alaway] 0.025 % (0.035 %) drops 1 drp EACH EYE BID PRN (Reason: allergy symptoms) Referrals / Follow Up: Fletcher Corona MD [Primary Care Provider] - Disposition Disposition (needs filled in before D/C Order can be placed): Home, Self Care Charges/Coding Visit Charges Inpatient E&M: 73425 Disch Hosp >30min
[2025-02-23 14:39] VITALS: BP 137/102; PULSE 86; RESP 18; TEMP 37.1; O2SAT 98
[2025-02-23] MEDS: Naltrexone Microspheres 380 MG SYRINGE IM (16:32)
[2025-02-23] MEDS: Vivitrol ID Card 1 EACH MC (16:32)
[2025-02-23] MEDS: Vivitrol Administration Needles 1 EACH MC (16:32)
== END 2025-02-23 16:35 | disposition home or self-care (01) | DRG 897 ==
LOC: ED 19:30 → MS3 21:14
PROVIDERS: Admitting Provider Internal Medicine; Emergency Provider Emergency Medicine; PCP Family Medicine; Visit Provider Internal Medicine
DX: F10.10 Alcohol abuse, uncomplicated (principal); Z87.891 Personal history of nicotine dependence; Y90.8 Blood alcohol level of 240 mg/100 ml or more
CPT/HCPCS: 36415; 80048; 80053; 80307; 82077; 82248; 83735; 84100; 84443; 85025; 85610; 97802; 99252; 99285; A4216; G0463

== ENCOUNTER 2025-02-24 19:05 | Emergency (ER) | payer OTHER, SELFPAY ==
[2025-02-24 19:06] VITALS: BP 165/114; PULSE 79; RESP 17; TEMP 36.4; O2SAT 98; BMI 23.7
--- NOTE | 2025-02-24 19:12 | EX.ED.DYSGE1 ---
HPI History of Present Illness Chief Complaint: Allergic Reaction Informant: patient Onset/Context/Timing Onset: Hours (2) Context: Sudden Onset Timing: Continuous Quality: Swelling Location: Lips and tongue Worsened by: Nothing Relieved by: Benadryl Narrative Narrative: Patient presents with lip and tongue swelling that began approximately 2 hours prior to arrival. Patient states he uses nicotine pouches. Patient states he put nicotine pouch in his lip and started having some swelling after that. Patient states he has used this brand of nicotine pouches in the past. Patient states he took some Benadryl at home which has been helping. Patient states he was having some difficulty swallowing initially but this has improved. Patient admits to some nausea but denies any vomiting. [facility] Medical History Anxiety Home Medications ?Medication ?Instructions ?Recorded ?Last Taken ?Type NK 02/24/25 Unknown History Allergy/AdvReac Type Severity Reaction Status Date / Time Penicillins Allergy Unknown unknown Verified 02/24/25 19:09 Surgical History no surgical history no surgical history Social History Smoking Status: Current some day smoker tobacco type: smokeless tobacco ROS ROS ED Constitutional Constitutional ED: Denies chills or fever(s) Eyes Eyes: Denies blurry vision or change in vision ENT ENT ED: Denies rhinorrhea or sore throat Cardiovascular Cardiovascular: Denies chest pain or palpitations Respiratory/Chest Respiratory/Chest: Denies cough or dyspnea Gastrointestinal Gastrointestinal: Reports nausea; Denies vomiting Genitourinary Genitourinary ED: Denies dysuria or hematuria Musculoskeletal Musculoskeletal: Denies back pain or neck pain Integumentary Denies abscess or rash Neurologic Neurologic: Denies headache(s) or weakness Allergic/Immunologic Allergic/Immunologic ED: Denies mouth swelling or urticaria EXAM Physical Exam Const Vital Signs: 02/24/25 19:06 Temperature 97.6 F L Temperature Source Temporal Pulse Rate 79 Respiratory Rate 17 Blood Pressure 165/114 H Blood Pressure Mean 131 Pulse Ox 98 Oxygen Delivery Method Room Air Positive well nourished and well developed General Appearance ED: well developed and NAD HEENT Reports moist mucous membranes HEENT Narrative: There is mild edema of the mucosal surface of the lips. There is no tongue swelling. Oropharynx is clear. Airway is patent. Neck supple and no JVD Resp normal respiratory effort and clear to auscultation bilaterally Cardio regular rate and regular rhythm GI non-tender and non-distended Palpation: soft Extremity normal to inspection Neuro oriented x3, CN's II-XII intact bilaterally and no sensory deficits noted Sensorium / Orientation: alert Motor Exam: strength 5/5 throughout MDM MDM MDM Narrative Medical decision making narrative: The patient was advised that this could be an allergic reaction. Patient is feeling better after taking Benadryl. Because of this, we will observe the patient here in the emergency department for recurrent swelling. History & Record Review Additional record(s) reviewed:: Prior inpatient record and Prior labs Treatment and Re-Evaluation :: Patient was feeling better and wanted to go home. Patient left the emergency department prior to receiving his discharge instructions. Patient was advised to return if worsening swelling or if worse in any way. Discharge Plan Triage Chief Complaint: Allergic Reaction ED Provider: Varghese Best Dx/Rx/DC Orders Clinical Impression: Lip swelling, Elevated blood pressure reading without diagnosis of hypertension Instructions: ED Allergic Reaction Local Other Prescriptions: No Action NK Primary Care Provider: Fletcher Corona Referrals: Fletcher Corona MD [Primary Care Provider] - 5-7 Days Print Language: Tamazight Disposition Disposition: Home, Self Care Discharge Date/Time: 02/24/25 19:56
== END 2025-02-24 19:56 | disposition home or self-care (01) ==
PROVIDERS: Emergency Provider Emergency Medicine; PCP Family Medicine; Referring Provider Emergency Medicine; Visit Provider Emergency Medicine
DX: R03.0 Elevated blood-pressure reading, without diagnosis of hypertension (principal); F17.220 Nicotine dependence, chewing tobacco, uncomplicated; R60.9 Edema, unspecified
CPT/HCPCS: 99282

== ENCOUNTER → 2025-06-21 | Outpatient (CLI) | payer OTHER, SELFPAY ==
[2025-06-21 12:54] LABS: AST(SGOT) 27 U/L (<=37); Alanine Aminotransfer ALT/SGPT 24 U/L (<=46); Albumin, Serum 4.6 g/dL (3.5-5.0); Alkaline Phosphatase 58 U/L (40-129); Anion Gap 12 (5-15); BUN 13 mg/dL (4-19); BUN/Creat Ratio 11.5 RATIO (10-20); Calcium,Total 9.8 mg/dL (7.6-11.0); Carbon Dioxide 24.4 mmol/L (21.0-32.0); Chloride 101 mmol/L (98-108); Cholesterol 121 mg/dL (<=200); Globulin 2.7 g/dL (2.2-4.2); Glucose 122 mg/dL (70-99); Low Density Lipoprotein Calc. 49 mg/dL; Potassium 3.6 mmol/L (3.3-5.1); Triglycerides 62 mg/dL; Very Low Density Lipoprotein 12 mg/dL (5-40); cholesterol:hdl ratio screen 2.02
== END | disposition home or self-care (01) ==
LOC: MFPLAB 10:36
PROVIDERS: PCP Family Medicine; Visit Provider Family Medicine
DX: R74.01 Elevation of levels of liver transaminase levels (principal); I10 Essential (primary) hypertension
CPT/HCPCS: 36415; 80053; 80061